=== PATIENT | male | born 1970 | race Caucasian/White ===

== ENCOUNTER 2021-10-04 08:18 | Emergency (ER) | payer BC, SELFPAY ==
--- NOTE | ~2021-10-04 | XR_ITS ---
XR knee LT min 4V 10/04/2021 08:51 Indication: Left knee pain. History of gout. Procedure: 4 views left knee Comparison: No prior studies for comparison. Findings: No fracture, subluxation or dislocation. No significant joint effusion. There is an unfused tibial apophysis. There is mild soft tissue swelling medial to the knee on the oblique image. No for eign bodies. Impression: 1: No acute fracture. Reviewed, dictated and finalized at location A. Impression: 1: No acute fracture.
[2021-10-04 08:26] VITALS: BP 142/92; PULSE 61; RESP 20; TEMP 36.6; O2SAT 100
--- NOTE | 2021-10-04 08:45 | ED.GENADULT ---
HPI - General Adult General Chief complaint: Extremity Problem,Nontraumatic Stated complaint: Pain in left knee Time Seen by Provider: 10/04/21 08:45 Source: patient, RN notes reviewed and old records reviewed Mode of arrival: ambulatory Limitations: no limitations History of Present Illness HPI narrative: 50 year old male who presents to [facility] care with complaints of left knee pain since with no known injury. 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 Patient has notable limping gait. Patient rates his pain a 9/10, states is continuous aching pain. MD complaint: pain left knee Onset (ago): day(s) (4) Location: left and lower extremity (knee) Related Data Allergies Allergy/AdvReac Type Severity Reaction Status Date / Time No Known Allergies Allergy Verified 10/04/21 09:15 Review of Systems Review of Systems: CONSTITUTIONAL: Denies fever, chills, or sweats. EYES: Denies visual changes, redness, or discharge. ENT: Denies rhinorrhea, congestion, sore throat, or otalgia. CARDIOVASCULAR: Denies chest pain, palpitations, or edema. RESPIRATORY: Denies cough or dyspnea. GASTROINTESTINAL: Denies abdominal pain, nausea, vomiting, or diarrhea. GENITOURINARY: Denies dysuria or hematuria. SKIN: Denies rash or itching. MUSCULOSKELETAL: Denies back pain,positive for left knee joint pain, or myalgia. NEUROLOGIC: Denies headache, numbness, or weakness. PSYCHIATRIC: Denies anxiety or depression. All systems reviewed & are unremarkable except as noted in HPI and below [facility] Past Medical History Medical History (Updated 10/05/21 @ 00:00 by Neisha Kaur) Gout [place]Sch[place]atter's disease Surgical History Surgical History (Updated 10/04/21 @ 09:01 by Francine Drummond NP) History of nasal surgery nasal fracture Social History Social History (Updated 10/04/21 @ 09:02 by Francine Drummond NP) Smoking status: Never smoker Alcohol intake: current Alcohol use details: social Substance use: never Living arrangements: with family Gender identity (if verbalized by the patient): Male Comments At time of signature, agree with nursing past medical, surgical, social and family history. There is no relevant family history pertinent to the presenting complaint Exam Narrative: GENERAL: Well-appearing, well-nourished, and in no acute distress. HEAD: Normocephalic, atraumatic. EYES: PERRLA and EOMI. ENT: Nares clear, no rhinorrhea or epistaxis. Mucous membranes moist.TM's normal with good light reflex, throat pink with no lesions or exudates, no tonsil swelling noted. NECK: Supple.no lymphadenopathy CHEST: Clear to auscultation. No respiratory distress.SAO2 100% on room air HEART: Regular rate and rhythm. No murmur heard. Normal peripheral pulses. ABDOMEN: Soft, nontender, nondistended, normal active bowel sounds. EXTREMITIES: Normal range of motion. No edema.Painful left knee anterior aspect with weight bearing and movement, raised firm tender area to area below knee cap along tibial plateau aspect with some medial swelling of left knee, circulation and sensation intact to left leg and foot. SKIN: Warm, dry, no rash. NEURO: No focal deficits. Alert and oriented x3. Course Course Level of Care: Express Care Visit Vital Signs Vital signs: Vital Signs Temperature 36.6 C 10/04/21 08:26 Pulse Rate 61 10/04/21 08:26 Respiratory Rate 20 10/04/21 08:26 Blood Pressure 142/92 H 10/04/21 08:26 Pulse Oximetry 100 10/04/21 08:26 Oxygen Delivery Room Air 10/04/21 08:26 Temperature 36.6 C 10/04/21 08:26 Pulse Rate 61 10/04/21 08:26 Respiratory Rate 20 10/04/21 08:26 Blood Pressure 142/92 H 10/04/21 08:26 Pulse Oximetry 100 10/04/21 08:26 Oxygen Delivery Room Air 10/04/21 08:26 Medical Decision Making Differential Diagnosis Differential Diagnosis:
== END 2021-10-04 09:26 | disposition home or self-care (01) ==
PROVIDERS: Emergency Provider Registered Nurse
DX: M25.562 Pain in left knee (principal); M10.9 Gout, unspecified; M92.522 Juvenile osteochondrosis of tibia tubercle, left leg
CPT/HCPCS: 73564; 99213; G0463